=== PATIENT | male | born 1935 | race Caucasian/White ===

== ENCOUNTER 2017-03-16 09:00 | Outpatient (RCR) | payer MEDICARE, OTHER ==
[~2017-03-16 09:00] MED LIST: ADVIL; ALLO100T70 PO; ASCO100T15 PO; ASPI81TA94 PO; BUDE10.2 INH; BUDE10.25 IH; DOXA4TAB57 PO; DOXA4TAB58 PO; IBUP-56 PO; INDO25OR3 PO; MAX75 PO; MULT-865 PO; OXYGENHOME INH; ROSU20TA23 PO; TIO18R INH; [UNRECOGNIZED DRUG - CODE] PO
== END 2017-04-20 ==
LOC: RESP 09:00
PROVIDERS: ATTEND Family Medicine
DX: J44.9 Chronic obstructive pulmonary disease, unspecified (principal); J84.9 Interstitial pulmonary disease, unspecified; G47.33 Obstructive sleep apnea (adult) (pediatric)
CPT/HCPCS: G0239

== ENCOUNTER → 2017-05-08 | Outpatient (CLI) | payer MEDICARE, OTHER ==
--- NOTE | 2017-05-11 19:56 | RT HOLTER TEST ---
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 symbicort spiriva statin 306431 QRS complexes 1240 Ventricular ectopics which represent <1 % of total QRS comp. 39574 Supraventricular ectopics which represent 9 % of total QRS comp. * Paced QRS complexes which represent % of total QRS comp. VENTRICULAR ECTOPY 1240 Isolated 37 Bigeminal Cycles 0 Couplets 0 Runs 0 Beats in Runs * Beats LONGEST at * BPM at :: -- * Beats FASTEST at * BPM at :: -- SUPRAVENTRICULAR ECTOPY 49867 Isolated 2484 Couplets 1521 Runs 5572 Beats in Runs 11 Beats LONGEST at 146 BPM at 07:58:18 2017-05-10 3 Beats FASTEST at 187 BPM at 14:55:21 2017-05-09 HEART RATES 44 MIN at 06:05:00 2017-05-09 84 AVG 175 MAX at 14:20:29 2017-05-08 LONGEST RR 1.688 secs at 04:54:25 2017-05-09 S-T LEVELS Channel 1 -12.800 mm MIN at 14:19:00 2017-05-08 -12.800 mm MAX at 14:19:00 2017-05-08 Channel 2 -12.800 mm MIN at 14:19:00 2017-05-08 -12.800 mm MAX at 14:19:00 2017-05-08 Channel 3 -12.800 mm MIN at 14:19:00 2017-05-08 -12.800 mm MAX at 14:19:00 2017-05-08 The patient reported daily events in the diary that did not correspond with any consistent abnormalit ies. He did have one "event" that had a 3 beat run of supraventricular ectopy (SVE) at 150 beats per minute (bpm). The patient had frequent SVE (9 % of QRS complexes ) and short runs of supraventricular tachycardia and/or atrial fibrillation that were almost all asymptomatic. There wa s much baseline artifact that made it difficult to distinguish. There was occasional asymptomatic ventricular ectopy. He had much baseline variabi lity in heart rate with the average being 84 beats per minutes (bpm). The highest was 175 bpm and the lowest was 44 bpm. Confirmed by YUNIER MAGANA ([id number]) on 05/11/2017 7:55:13 PM Referred By: Overread By: YUNIER MAGANA
== END ==
LOC: RESP 06:51
PROVIDERS: ATTEND Family Medicine
DX: I49.9 Cardiac arrhythmia, unspecified (principal)
CPT/HCPCS: 93225; 93226

== ENCOUNTER → 2017-11-08 | Outpatient (CLI) | payer MEDICARE, OTHER ==
[~2017-11-08] MED LIST changes: +TRIA-20 PO
[2017-11-08 10:55] LABS: PLATELET COUNT, AUTOMATED 188 K/uL (150-450)
[2017-11-08 11:29] LABS: LDL CHOLESTEROL 72 mg/dl
== END ==
LOC: LAB 10:19
PROVIDERS: ATTEND Family Medicine
DX: I10 Essential (primary) hypertension (principal); E78.5 Hyperlipidemia, unspecified
CPT/HCPCS: 36415; 82040; 82247; 82310; 82374; 82435; 82465; 82565; 82947; 83718; 84075; 84132; 84155; 84295; 84450; 84460; 84478; 84520; 85025

== ENCOUNTER → 2018-06-11 | Outpatient (CLI) | payer MEDICARE, OTHER ==
[~2018-06-11] MED LIST changes: +FLU180SY11 IM
[2018-06-11 10:47] LABS: PLATELET COUNT, AUTOMATED 201 K/uL (150-450)
== END ==
LOC: LAB 10:19
PROVIDERS: ATTEND Family Medicine
DX: J98.4 Other disorders of lung (principal); M10.9 Gout, unspecified
CPT/HCPCS: 36415; 82040; 82247; 82310; 82374; 82435; 82565; 82947; 84075; 84132; 84155; 84295; 84450; 84460; 84520; 84550; 85025

== ENCOUNTER → 2018-10-01 | Outpatient (CLI) | payer MEDICARE, OTHER ==
[~2018-10-01] MED LIST changes: +EPIG1000 MC; +NINT150C PO; -ROSU20TA23 PO; +ROSU20TA24 PO; +TURM1POW2 MC
[2018-10-01 10:53] LABS: PLATELET COUNT, AUTOMATED 239 K/uL (150-450)
== END ==
LOC: LAB 10:34
PROVIDERS: ATTEND Family Medicine
DX: I10 Essential (primary) hypertension (principal); Z79.899 Other long term (current) drug therapy
CPT/HCPCS: 36415; 82040; 82247; 82310; 82374; 82435; 82565; 82947; 84075; 84132; 84155; 84295; 84450; 84460; 84520; 85025